=== PATIENT | male | born 1975 | race Caucasian/White ===

== ENCOUNTER 2017-01-31 14:17 | Emergency (ER) | payer OTHER, BC ==
[~2017-01-31] VITALS: Ht 190.5 cm; Wt 150.6 kg
[~2017-01-31 14:17] MED LIST: ULTRACET1 TABLET PO
[2017-01-31 14:20] VITALS: BP 130/86
== END 2017-01-31 15:43 | disposition home or self-care (01) ==
LOC: EME 14:17
DX: S16.1XXA Strain of muscle, fascia and tendon at neck level, initial encounter (principal); R51 Headache; M54.5 Low back pain; R11.0 Nausea; V49.40XA Driver injured in collision with unspecified motor vehicles in traffic accident, initial encounter; Y92.410 Unspecified street and highway as the place of occurrence of the external cause; Z72.0 Tobacco use
CPT/HCPCS: 99281; 99284